=== PATIENT | male | born 1995 | race Caucasian/White ===

== ENCOUNTER 2024-03-19 16:14 | Emergency (ER) | payer OTHER, SELFPAY ==
[2024-03-19 16:32] VITALS: BP 136/75; PULSE 73; RESP 18; TEMP 38; O2SAT 100
--- NOTE | 2024-03-19 17:43 | ED.URI ---
HPI - URI/Sore Throat General Chief Complaint: Upper Respiratory Infection Stated Complaint: Throat/Fever Time Seen by Provider: 03/19/24 17:33 Source: patient and RN notes reviewed Mode of arrival: ambulatory Limitations: no limitations History of Present Illness HPI Narrative: Patient presents today 4 day history of fever up to 102, chills, body aches, lymph node swelling in the neck and occipital area. He had some vomiting initially, but this has since resolved a few days ago. He is drinking plenty, but does report a bit of a decreased appetite. Denies cough, congestion, rhinorrhea, sore throat, abdominal pain, diarrhea, or any additional symptoms. He has been taking Tylenol and ibuprofen, which does help bring the fever down some before going back up. Denies any known sick contacts, but states he probably became ill after [place] a video arc[place]. Related Data Home Medications Medication Instructions Recorded Confirmed No Home Medications 03/19/24 03/19/24 Allergies Allergy/AdvReac Type Severity Reaction Status Date / Time No Known Allergies Allergy Verified 03/19/24 16:35 Review of Systems Review of Systems: CONSTITUTIONAL:+ fever, chills, body aches, lymph node swelling EYES: Denies visual changes, redness, or discharge. ENT: Denies rhinorrhea, congestion, sore throat, or otalgia. CARDIOVASCULAR: Denies chest pain, palpitations, or edema. RESPIRATORY: Denies cough or dyspnea. GASTROINTESTINAL: Denies abdominal pain, nausea, vomiting, or diarrhea. GENITOURINARY: Denies dysuria or hematuria. SKIN: Denies rash, itching, or wounds. MUSCULOSKELETAL: Denies back pain, joint pain, or myalgia. NEUROLOGIC: Denies headache, numbness, tingling, or weakness. PSYCH: Denies depression or anxiety. FOR[facility]LY [facility], [facility] Family History Family History Mother Diabetes mellitus Sibling Hypertension Grandparent Diabetes mellitus Social History Social History Smoking status: Current every day smoker (smokes marijuana. States he uses it for depression. ) Alcohol intake: never Substance use: current Substance use type: marijuana Comments At time of signature, I have reviewed and agree with nursing past medical, surgical, social and family history unless otherwise noted. Please see nursing chart for further information. There is no relevant family history pertinent to the presenting complaint Exam Narrative: GENERAL: Mildly ill-appearing, well-nourished, and in no acute distress. HEAD: Normocephalic, atraumatic. EYES: EOMI. No redness or drainage. Conjunctivae normal. ENT: Mucous membranes pink and moist. Nares clear. No rhinorrhea. TMs normal bilaterally. Throat mildly erythematous without edema or exudate. Uvula midline. NECK: Normal AROM. Supple. Bilateral posterior cervical chain and occipital lymphadenopathy. CHEST: No respiratory distress. Clear to auscultation. HEART: Regular rate and rhythm. No murmur appreciated. EXTREMITIES: Normal range of motion. No edema. SKIN: Warm, dry, no rash. Capillary refill normal. Normal skin turgor. NEURO: No focal deficits. Alert and oriented x3. Gait steady. PSYCH: Normal affect. No signs of depression or anxiety. Course Course Level of Care: Express Care Visit Vital Signs Vital signs: Vital Signs Temperature 100.4 F H 03/19/24 16:32 Pulse Rate 73 03/19/24 16:32 Respiratory Rate 18 03/19/24 16:32 Blood Pressure 136/75 03/19/24 16:32 Pulse Oximetry 100 03/19/24 16:32 Oxygen Delivery Room Air 03/19/24 16:32 Temperature 100.4 F H 03/19/24 16:32 Pulse Rate 73 03/19/24 16:32 Respiratory Rate 18 03/19/24 16:32 Blood Pressure 136/75 03/19/24 16:32 Pulse Oximetry 100 03/19/24 16:32 Oxygen Delivery Room Air 03/19/24 16:32 Reviewed MDM - URI/Sore Throat MDM Narrative Medical decision making narr
[2024-03-19 17:45] LABS: EDSTREPNEGPOS1 Negative (Negative)
[2024-03-19 17:51] LABS: EDCOVIDSCREEN Negative (Negative); EDINFLUASCREEN Negative (Negative); EDINFLUBSCREEN Negative (Negative)
== END 2024-03-19 18:05 | disposition home or self-care (01) ==
PROVIDERS: Emergency Provider Nurse Practitioner
DX: B34.9 Viral infection, unspecified (principal); Z20.822 Contact with and (suspected) exposure to COVID-19; F17.200 Nicotine dependence, unspecified, uncomplicated; F12.90 Cannabis use, unspecified, uncomplicated
CPT/HCPCS: 87081; 87426; 87804; 87880; 99213; G0463